=== PATIENT | male | born 1990 | race Caucasian/White ===

== ENCOUNTER 2017-10-19 22:00 | Emergency (ER) | payer OTHER ==
[2017-10-19 23:50] LABS: Basophils % (Auto) 0.9 % (0.0-1.8); Eosinophils % (Auto) 5.6 % (0.0-4.3); Hematocrit 47.3 % (35.5-45.6); Hemoglobin 16.2 gm/dl (11.8-15.2); Mean Corpuscular HGB Conc 34 % (32-34); Mean Corpuscular Hemoglobin 32 pg (28-32); Mean Corpuscular Volume 92 fl (84-94); Platelet Count 351 K/mm3 (140-440); Red Blood Count 5.14 M/mm3 (3.65-5.03); Red Cell Distribution Width 12.5 % (13.2-15.2); White Blood Count 7.6 K/mm3 (4.5-11.0)
[2017-10-19 23:56] LABS: Anion Gap 25 mmol/L; BUN/Creatinine Ratio 12; Blood Urea Nitrogen 11 mg/dL (9-20); Calcium 9.1 mg/dL (8.4-10.2); Carbon Dioxide 24 mmol/L (22-30); Chloride 95.7 mmol/L (98-107); Glucose 114 mg/dL (75-100); Potassium 4.1 mmol/L (3.6-5.0); Sodium 141 mmol/L (137-145)
--- NOTE | 2017-10-20 11:27 | Emergency Department Report ---
ED Chest Pain HPI - General Chief Complaint: Chest Pain Stated Complaint: CP Time Seen by Provider: 10/20/17 11:09 Source: patient Mode of arrival: Ambulatory Limitations: Language Barrier - History of Present Illness Initial Comments: This is a 26-year-old male presents to the emergency department with a few different complaints. The patient started having some generalized chest pain yesterday. He also complains of a few days of some body aches including in the legs. He was here in the past and had a workup for some numbness in the legs and says that that is returning intermittently. He denies any shortness of breath, fever, nausea, vomiting or diaphoresis. The patient admits to using cocaine 2 days ago and drinking 5 or 6 beers yesterday, just prior to coming into the emergency department. It is currently 11:25 AM and this patient's chart has just become available to me to see him for history and physical, but he has been at the hospital waiting to be seen since about midnight last night. He denies consistent tobacco use but does say that he smokes cigars every once in a while. He did not take anything for her symptoms prior to presentation. He denies any past medical history. He does not have a primary care physician. No recent travel or sick contacts at home. Severity scale (0 -10): 6 - Related Data Allergies Allergy/AdvReac Type Severity Reaction Status Date / Time No Known Allergies Allergy Unverified 10/19/17 22:19 Heart Score - HEART Score History: Slightly suspicious EKG: Normal Age: < 45 Risk factors: No known risk factors Troponin: < normal limit HEART Score: 0 - Critical Actions Critical Actions: 0-3 pts:0.9-1.7%risk of adverse cardiac event.Candidate for discharge ED Review of Systems ROS: Stated complaint: CP Other details as noted in HPI Comment: All other systems reviewed and negative Constitutional: denies: chills, fever Eyes: denies: eye pain, eye discharge, vision change ENT: denies: ear pain, throat pain Respiratory: denies: cough, shortness of breath, wheezing Cardiovascular: chest pain. denies: palpitations Gastrointestinal: denies: abdominal pain, nausea, diarrhea Genitourinary: denies: urgency, dysuria Musculoskeletal: myalgia. denies: back pain Skin: denies: rash, lesions Neurological: denies: headache, weakness ED Past Medical Hx - Past Medical History Previous Medical History?: No - Surgical History Past Surgical History?: No - Social History Smoking Status: Current Every Day Smoker Substance Use Type: Alcohol, Cocaine ED Physical Exam - General Limitations: Language Barrier - Other Other exam information: GENERAL: The patient is well-developed well-nourished. HENT: Normocephalic. Atraumatic. Patient has moist mucous membranes. EYES: Extraocular motions are intact. Pupils equal reactive to light bilaterally. NECK: Supple. Trachea is midline. CHEST/LUNGS: Clear to auscultation. There is no respiratory distress noted. HEART/CARDIOVASCULAR: Regular. There is no tachycardia. There is no murmur. ABDOMEN: Abdomen is soft, nontender. Patient has normal bowel sounds. There is no abdominal distention. SKIN: Skin is warm and dry. NEURO: The patient is awake, alert, and oriented. The patient is cooperative. The patient has no focal neurologic deficits. The patient has normal speech. MUSCULOSKELETAL: There is no tenderness or deformity. There is no limitation range of motion. There is no evidence of acute injury. ED Course Vital Signs 10/19/17 10/20/17 10/20/17 22:13 04:28 11:09 Temperature 98.2 F 98.9 F Pulse Rate 116 H 100 H 77 Respiratory 20 20 14 Rate Blood Pressure 138/92 134/94 O2 Sat by Pulse 100 99 Oximetry 10/20/17 10/20/17 10/20/17 11:21 11:34 12:00 Temperature Pulse Rate 87 85 78 Respiratory 14 18 Rate Blood Pressure 157/110 133/93 O2 Sat by Pulse 98 Oximetry 10/20/17 10/20/17 10/20/17 12:30 13:00 13:30 Temperature Pulse Rate 82 109 H 77 Respiratory 20 17 19 Rate Blood Pressure 120/88 131/75 131/91 O2 Sat by Pulse Oximetry FREDY score - Fredy Score Age > 65: (0) No Aspirin use within the Past 7 Days: (0) No 3 or more CAD Risk Factors: (0) No 2 or more Angina events in past 24 hrs: (0) No Known CAD with more than 50% Stenosis: (0) No Elevated Cardiac Markers: (0) No ST Deviation Greater than 0.5mm: (0) No FREDY Score: 0 ED Medical Decision Making - Lab Data Result diagrams: 10/19/17 23:01 10/19/17 23:01 - EKG Data -: EKG Interpreted by Me EKG shows normal: sinus rhythm, axis, intervals, QRS complexes, ST-T waves ( early repolarization) Rate: normal - EKG Data When compared to previous EKG there are: previous EKG unavailable Interpretation: normal EKG (with early re-pole) - Radiology Data Radiology results: image reviewed interpreted by me: Chest x-ray does not show any acute process. There are no pleural effusions, obvious pneumonia and there is no pneumothorax. - Medical Decision Making 26-year-old male presents to the emergency department with some chest discomfort. He also has a recent cocaine use and recent alcohol use. Labs of an unremarkable including negative troponins 3. EKG does not show any signs of ST elevation [place]. Chest x-ray does not show any acute process. Vital signs stable throughout his equal. The patient is low on the heart score criteria and has a FREDY score of 0. He is low on the well's score criteria negative for the pulmonary and wasn't related criteria. He was reevaluated multiple times for multiple hours and appears improved. He appears safe for discharge home. He was given referrals for primary care and cardiology. He will return with any worsening of his symptoms or any acute distress. Dianna was gracious enough to help with translation. - Differential Diagnosis [place], pneumonia, costochondritis, GERD Critical Care Time: No Critical care attestation.: If time is entered above; I have spent that time in minutes in the direct care of this critically ill patient, excluding procedure time. ED Disposition Clinical Impression: Body aches, Cocaine use Chest pain Qualifiers: Chest pain type: unspecified Qualified Code(s): R07.9 - Chest pain, unspecified Disposition: DC-01 TO HOME OR SELFCARE Is pt being admited?: No Condition: Stable Instructions: Chest Pain (ED), Costochondritis (ED) Additional Instructions: Please follow up with a primary care physician in the next few days. I have given a referral for a local package pick up/heart doctor, Dr. Mckeon, to follow up regarding your chest discomfort. Return to the emergency Department with any worsening of your symptoms or any acute distress. Please try and stay away from any further cocaine use or any tobacco use. Referrals: BRITTANY CHAPIN MD [Primary Care Provider] - 3-5 Days NING MCKEON MD [Staff Physician] - 3-5 Days [facility] [Outside] - 3-5 Days Time of Disposition: 13:08 Print Language: [place]
[2017-10-20 13:22] LABS: Urine Drugs of Abuse Note Disclamer
[2017-10-20 13:34] LABS: Bilirubin,Urine NEG (Negative); Blood,Urine NEG (Negative); Ketones,Urine NEG (Negative); Leukocyte Esterase,Urine NEG (Negative); Nitrite,Urine NEG (Negative); Protein,Urine <15 mg/dL mg/dL (Negative); Urobilinogen,Urine < 2.0 mg/dL (<2.0); WBC,Urine < 1.0 /HPF (0.0-6.0)
--- NOTE | 2017-10-20 13:47 | XRay Report ---
ROUTINE CHEST, TWO VIEWS: HISTORY: chest pain. The trachea, heart, mediastinal contour, lung perkins and bony thorax are unremarkable. IMPRESSION: Unremarkable chest x-ray.
[2017-10-20 13:59] VITALS: BP 131/91
== END 2017-10-20 14:32 | disposition home or self-care (01) ==
LOC: ED 22:00
DX: R07.9 Chest pain, unspecified (principal); F17.200 Nicotine dependence, unspecified, uncomplicated; F14.10 Cocaine abuse, uncomplicated; Z79.899 Other long term (current) drug therapy
CPT/HCPCS: 36415; 71020; 80048; 80307; 81001; 82550; 84484; 85025; 93005; 93010; 99284